=== PATIENT | female | born 1980 | race Caucasian/White ===

== ENCOUNTER 2018-04-13 06:19 | Day surgery (SDC) | payer OTHER ==
[2018-04-13] MEDS ORDERED: CIPROFLOXACIN 400 MG in D5W 200 ML IVPB (06:30)
[2018-04-13] MEDS ORDERED: ONDANSETRON 4 MG INJ (07:00)
[2018-04-13] MEDS ORDERED: LACTATED RINGER'S 1,000 ML IV (07:30)
[2018-04-13] MEDS ORDERED: PROPOFOL 40 ML (09:23)
[2018-04-13] MEDS ORDERED: DEXAMETHASONE 4 MG/ML 1 ML INJ (09:23)
[2018-04-13] MEDS ORDERED: MIDAZOLAM 1 MG/ML 2 ML INJ (09:23)
[2018-04-13] MEDS ORDERED: LIDOCAINE 2% (SDV) 5 ML INJ (09:23)
[2018-04-13] MEDS ORDERED: FAMOTIDINE 20 MG INJ (09:23)
[2018-04-13] MEDS ORDERED: FENTAnyl 50 MCG/ML VIAL ×2 (09:23→09:38)
[2018-04-13] MEDS ORDERED: METOCLOPRAMIDE 10 MG INJ (09:23)
[2018-04-13] MEDS ORDERED: DIPHENHYDRAMINE 50 MG INJ IV (09:30)
[2018-04-13] MEDS ORDERED: LABETALOL HCL 20MG INJ IV (09:30)
[2018-04-13] MEDS ORDERED: FENTAnyl 50 MCG/ML VIAL IV ×2 (09:30)
[2018-04-13] MEDS ORDERED: OXYCODONE/ACETAMINOPHEN (5/325) TAB PO ×2 (09:30)
[2018-04-13] MEDS ORDERED: morphine (1 MG/ML) 10ML SYRINGE IV ×2 (09:30)
[2018-04-13] MEDS ORDERED: ALBUTEROL 0.083% (NEB) 2.5 MG/3 ML AMP HHN (09:30)
[2018-04-13] MEDS ORDERED: HYDROmorphONE 1 MG/5 ML IV SYRINGE IV ×2 (09:30)
[2018-04-13] MEDS ORDERED: EPHEDrine SULFATE 50 MG/5 ML SYG (09:41)
[2018-04-13] MEDS: IOHEXOL 300MG/ML 30 ML BTL (09:50)
[2018-04-13] MEDS ORDERED: CIPROFLOXACIN 400MG/D5W 200 ML (10:01)
[2018-04-13] MEDS: MEPERIDINE 25 MG INJ IV (10:25)
[2018-04-13] MEDS: ONDANSETRON 4 MG INJ IV (10:25)
== END 2018-04-13 11:51 | disposition home or self-care (01) ==
LOC: SDS 06:19
DX: N20.0 Calculus of kidney (principal); R39.15 Urgency of urination; N39.0 Urinary tract infection, site not specified; I10 Essential (primary) hypertension; E66.01 Morbid (severe) obesity due to excess calories
CPT/HCPCS: 52353; 74430; 84703